=== PATIENT | female | born 1975 | race Caucasian/White ===

== ENCOUNTER 2017-09-15 14:32 | Inpatient (IN) | payer OTHER ==
[~2017-09-15] VITALS: Ht 170.2 cm; Wt 75.0 kg
[2017-09-15 14:32] VITALS: BP 191/93
[~2017-09-15 14:32] MED LIST: NOHOMEMEDS
[2017-09-15 14:36] VITALS: BP 181/103
[2017-09-15 15:38] LABS: ALBUMIN 3.1 G/DL (3.2-4.8); CHLORIDE 105 MEQ/L (99-109); POTASSIUM 3.9 MEQ/L (3.7-5.4); SODIUM 136 MEQ/L (136-147); TOTAL BILIRUBIN 0.5 MG/DL (0.0-1.0)
[2017-09-15 15:42] LABS: BENZODIAZEPINES, URINE SCREEN Negative (200 ng/mL)
[2017-09-15 15:44] LABS: ALKALINE PHOSPHATASE 203 IU/L (3-129); ALT (GPT) 56 IU/L (3-49); AST (GOT) 44 IU/L (2-34); CREATININE 0.7 MG/DL (0.6-1.3); GFR ESTIMATE (CALCULATED) > 59 mL/min/; GLUCOSE 69 mg/dL (70-99); LACTATE DEHYDROGENASE 189 IU/L (20-246); TOTAL PROTEIN 7.1 G/DL (6.4-8.3); UREA NITROGEN (BUN) 9 mg/dL (9-23); URIC ACID 6.6 mg/dL (3.1-9.2)
[2017-09-15 15:56] LABS: UR CREATININE CONCENTRATION 134.9 MG/DL
[2017-09-15 17:00] LABS: AMPHETAMINE NEGATIVE (500 ng/mL); BARBITURATES NEGATIVE (200 ng/mL); BENZODIAZEPINES NEGATIVE (150 ng/mL); BUPRENORPHINE NEGATIVE (10 ng/mL); COCAINE PRESUMPTIVE POSITIVE (150 ng/mL); METHADONE PRESUMPTIVE POSITIVE (200 ng/mL); METHAMPHETAMINE NEGATIVE (500 ng/mL); OPIATES (MORPHINE) PRESUMPTIVE POSITIVE (100 ng/mL); OXYCODONE NEGATIVE (100 ng/mL); PHENCYCLIDINE NEGATIVE (25 ng/mL); PROPOXYPHENE NEGATIVE (300 ng/mL); THC CANNABINOIDS NEGATIVE (50 ng/mL); TRICYCLIC ANTIDEPRESSANTS NEGATIVE (300 ng/mL)
[2017-09-15 18:19] LABS: HEMATOCRIT 34.7 % (36.0-46.0); HEMOGLOBIN 11.7 G/DL (11.9-15.5); MCH 29.1 PG (29.0-34.0); MCHC 33.7 G/DL (30.0-36.0); MCV 86.3 FL (83-99); PLATELET COUNT 175 K/uL (156-360); RBC DIS.WIDTH-CV 13.8 % (11.8-14.6); RBC DIS.WIDTH-SD 42.6 % (39-53); RED BLOOD COUNT 4.02 M/uL (3.80-5.20); WHITE BLOOD COUNT 15.3 K/uL (4.1-10.2)
[2017-09-15 18:41] LABS: ANTI-HIV (AIDS STAT TEST) NONREACTIVE
[2017-09-15] MEDS ORDERED: METHADONE10 MG PO (19:18)
[2017-09-15 19:30] VITALS: BP 135/79
[2017-09-15 21:01] VITALS: BP 134/79
[2017-09-15 22:53] VITALS: BP 149/91
[2017-09-16 00:57] VITALS: BP 134/63
[2017-09-16 03:15] VITALS: BP 121/63
[2017-09-16 07:50] LABS: BASOPHIL (%) 0.2 % (0-1); EOSINOPHIL (%) 0.4 % (0-5); HEMATOCRIT 26.3 % (36.0-46.0); HEMOGLOBIN 8.7 G/DL (11.9-15.5); IMMATURE GRANULOCYTE (%) 0.4 % (0.0-0.7); LYMPHOCYTE (%) 20.4 % (15-42); LYMPHOCYTE COUNT 1.9 K/uL (1.0-2.8); MCH 28.9 PG (29.0-34.0); MCHC 33.1 G/DL (30.0-36.0); MCV 87.4 FL (83-99); MONOCYTE (%) 7.6 % (3-12); MONOCYTE COUNT 0.7 K/uL (0-0.8); NEUTROPHIL COUNT 6.4 K/uL (1.8-6.4); PLATELET COUNT 130 K/uL (156-360); RBC DIS.WIDTH-CV 13.7 % (11.8-14.6); RBC DIS.WIDTH-SD 43.4 % (39-53); RED BLOOD COUNT 3.01 M/uL (3.80-5.20); WHITE BLOOD COUNT 9.1 K/uL (4.1-10.2)
[2017-09-16 08:15] LABS: ALBUMIN 2.2 G/DL (3.2-4.8); CHLORIDE 106 MEQ/L (99-109); POTASSIUM 3.4 MEQ/L (3.7-5.4); SODIUM 137 MEQ/L (136-147); TOTAL BILIRUBIN 0.5 MG/DL (0.0-1.0)
[2017-09-16 08:21] LABS: ALT (GPT) 42 IU/L (3-49); AST (GOT) 40 IU/L (2-34); CREATININE 0.6 MG/DL (0.6-1.3); GFR ESTIMATE (CALCULATED) > 59 mL/min/; GLUCOSE 68 mg/dL (70-99); UREA NITROGEN (BUN) 7 mg/dL (9-23)
[2017-09-16 08:24] LABS: ALKALINE PHOSPHATASE 131 IU/L (3-129); TOTAL PROTEIN 4.8 G/DL (6.4-8.3)
[2017-09-16 09:20] LABS: TREPONEMA ANTIBODY NEGATIVE (NEGATIVE)
[2017-09-16 10:26] LABS: HEPATITIS B SURFACE ANTIGEN Nonreactive
[2017-09-16 10:27] LABS: HIV-1/2 AB/AG COMBO Nonreactive
[2017-09-16 10:37] LABS: HEPATITIS B SURFACE ANTIBODY REACTIVE
[2017-09-16 22:46] LABS: HCV RNA (IU/mL) 372000 IU/mL (())
[2017-09-17 07:15] VITALS: BP 101/55
[2017-09-17 14:15] VITALS: BP 141/90
[2017-09-17 14:58] VITALS: BP 138/89
[2017-09-17 20:30] VITALS: BP 142/82
[2017-09-18 01:00] VITALS: BP 128/78
[2017-09-18 07:31] VITALS: BP 102/50
[2017-09-18 12:09] VITALS: BP 119/71
[2017-09-18 21:01] LABS: HCV RNA (LOG IU/mL) 5.57 (())
[2017-09-18 23:17] VITALS: BP 132/80
[2017-09-19] MEDS ORDERED: ENDOCET 5-3251 EACH PO (08:52)
[2017-09-19] MEDS ORDERED: MOTRIN600 MG PO (08:52)
[2017-09-20 12:26] LABS: Varicella IgG <135.00 Index (>=165.00); Varicella IgM <=0.90 (<=0.90)
== END 2017-09-19 17:30 | disposition home or self-care (01) | DRG 765 ==
LOC: LDRP-OP 14:32 → 2WEST 14:33 → LDRP-OP 11-12 14:07
PROVIDERS: Obstetrics & Gynecology
PROC: 10D00Z1 Extraction of Products of Conception, Low, Open Approach (ICD-10-PCS; principal; 2017-09-15)
DX: O60.14X0 Preterm labor third trimester with preterm delivery third trimester, not applicable or unspecified (principal); D62 Acute posthemorrhagic anemia; Z37.0 Single live birth; Z3A.36 36 weeks gestation of pregnancy; O42.913 Preterm premature rupture of membranes, unspecified as to length of time between rupture and onset of labor, third trimester; O32.1XX0 Maternal care for breech presentation, not applicable or unspecified; O34.211 Maternal care for low transverse scar from previous cesarean delivery; F14.10 Cocaine abuse, uncomplicated; O99.324 Drug use complicating childbirth; B19.20 Unspecified viral hepatitis C without hepatic coma; O98.42 Viral hepatitis complicating childbirth; F17.200 Nicotine dependence, unspecified, uncomplicated; O99.334 Smoking (tobacco) complicating childbirth; E66.3 Overweight; O99.214 Obesity complicating childbirth; O16.4 Unspecified maternal hypertension, complicating childbirth; O99.02 Anemia complicating childbirth; Z68.26 Body mass index [BMI] 26.0-26.9, adult
CPT/HCPCS: 80053; 80306 90; 82570; 83615; 84156; 84550; 84999; 85025; 85027; 86706; 86762; 86780; 86787 90; 86850; 86900; 86901; 87081; 87340; 87389; 87522 90; 87641; 88307; J0690; J1170; J1885; J2274; J2405; J3010; J7120

== ENCOUNTER 2017-12-16 22:53 | Emergency (ER) | payer OTHER ==
[~2017-12-16] VITALS: Ht 170.2 cm; Wt 77.2 kg
[~2017-12-16 22:53] MED LIST changes: +ENDOCET 5-3251 EACH PO; +METHADONE10 MG PO; +MOTRIN600 MG PO
[2017-12-17] MEDS ORDERED: INDOCIN50 MG PO (00:08)
[2017-12-17 00:32] VITALS: BP 118/69
== END 2017-12-17 00:35 | disposition home or self-care (01) ==
LOC: EME 22:53
DX: S42.024A Nondisplaced fracture of shaft of right clavicle, initial encounter for closed fracture (principal); S16.1XXA Strain of muscle, fascia and tendon at neck level, initial encounter; S06.0X0A Concussion without loss of consciousness, initial encounter; W01.198A Fall on same level from slipping, tripping and stumbling with subsequent striking against other object, initial encounter
CPT/HCPCS: 73000; 73030; 99281; 99284; J1885